=== PATIENT | male | born 1945 | race Caucasian/White ===

== ENCOUNTER 2017-04-25 08:11 | Day surgery (SDC) | payer MEDICARE ==
[~2017-04-25] VITALS: Ht 165.1 cm; Wt 79.4 kg
[~2017-04-25 08:11] MED LIST: BAYER CHEWABLE81 MG PO; EFFIENT10 MG PO; FLAGYL500 MG PO; GLUCOPHAGE500 MG PO; LIPITOR80 MG PO; LOPRESSOR25 MG PO; NORVASC10 MG PO; PRINIVIL20 MG PO; PROTONIX40 MG PO; RANEXA1000 MG PO; ZOFRAN4 MG PO
[2017-04-25 08:42] LABS: HEMATOCRIT 41.8 % (42.0-54.0); HEMOGLOBIN 14.7 g/dL (13.5-17.5); MCH 31.5 pg (26.0-34.0); MCHC 35.2 g/dL (31.0-37.0); MCV 89.5 fL (80.0-100.0); MEAN PLATELET VOLUME 9.2 fL (7.4-10.4); RBC 4.67 10x6/uL (4.20-6.10); RDW 12.9 % (11.5-14.5); WBC 8.3 10x3/uL (4.8-10.8)
[2017-04-25 08:52] LABS: ANION GAP 13.2 mmol/L (8-16); CALCIUM 9.5 mg/dL (8.5-10.1); CARBON DIOXIDE 26.2 mmol/L (21.0-32.0); CREATININE - SERUM 1.3 mg/dL (0.6-1.3); POTASSIUM - SERUM 4.4 mmol/L (3.5-5.1)
[2017-04-25] MEDS ORDERED: BAYER CHEWABLE81 MG PO (10:00)
[2017-04-25] MEDS ORDERED: EFFIENT10 MG PO (10:00)
[2017-04-25] MEDS ORDERED: PROVENTIL HFA6.7 GM INH (10:01)
[2017-04-25 10:02] VITALS: Ht 165.1 cm; Wt 79.4 kg
--- NOTE | 2017-04-25 16:00 | NUR ---
1530--IV DC'D, PT UP TO DRESS AT THIS TIME. KUSUM WISEMAN [id number]--DISCHARGE INSTRUCTIONS GIVEN, PT VERBALIZES UNDERSTANDING. PT OFF UNIT VIA WC. KUSUM WISEMAN
--- NOTE | 2017-05-03 13:27 | OP ---
PATIENT NAME: MINNA BERGERON MEDICAL RECORD: [id number] :43 LOCATION:D.OPS ADMISSION DATE: SURGEON: SALO GIPSON MD DATE OF OPERATION: 04/25/2017 PREOPERATIVE DIAGNOSES: 1. History of complex colon polyps including one polyp at 60 cm. 2. History of post-polypectomy bleeding. 3. History of right-sided prostatic nodule. POSTOPERATIVE DIAGNOSES: History of complex colon polyps including one polyp at 60 cm and history of post-polypectomy bleeding, with no evidence of recurrence or persistence of the polyp at 60 cm. Two new polyps, which appear to be adenomatous, they ranged in size from 9 mm to 1.5 cm and were sessile polyps. History of right-sided prostatic nodule. PROCEDURES: 1. Total colonoscopy to cecum. 2. Hot biopsy forceps polypectomies times 2. 3. Biopsies of the scar at 60 cm and then treatment of this site with the argon plasma salon professional. SURGEON: Salo Gipson MD CIVIL PREPAREDNESS COORDINATOR: None. BLOOD LOSS: Minimal. ANESTHESIA: General. COMPLICATIONS: None. The risks, possible complications and alternatives of the procedure were explained to the patient. He elects to proceed. OPERATIVE COURSE: The patient was conveyed to the operating room electively on 04/25/2017. General anesthesia was induced by the anesthesia staff. The patient was placed in the Leo position. A colonoscope was inserted through the anus. It was easily advanced to the cecum. Upon withdrawal, I irrigated and aspirated extensively. The prep was excellent. Two sessile polyps were noted and were removed in their entireties utilizing the hot biopsy forceps polypectomy technique. The scar was noted. It was biopsied with the cold endoscopic biopsy forceps and then the base was obliterated with the argon plasma salon professional. I then continued to withdraw the endoscope. I dragged the folds. A combination of direct imaging as well as narrow band imaging were utilized. A retroflexed view was obtained in the rectum. I noted no anal polyps or lower rectal polyps. I then unretroflexed the scope and removed it under direct vision. I will see the patient back in my office in 2-3 weeks. It is very likely I will return the patient's endoscopic needs back over to Dr. Castro. TRANSINT:[id number] Voice Confirmation ID: [id number] DOCUMENT ID: [id number] CC: Dr. S. Vengala OPERATIVE REPORT [id number] MINNA BERGERON ROBERT MD at 1327 CC: PATRICIA CASTRO MD, ULISES LAINEZ MD and VIKTOR MILLER [id number] DICTATION DATE: 04/25/17 1415 MACHINE ASSISTANT: 04/25/17 1635 [facility] [place] 04/25/17 [place] [id number] [place] [id number]
--- NOTE | 2017-05-03 13:27 | HP ---
PATIENT: MINNA BERGERON MEDICAL RECORD: [id number] ACCOUNT: [id number] LOCATION:[facility] : 43 ADMISSION DATE: 04/25/17 HISTORY AND PHYSICAL EXAMINATION CHIEF COMPLAINT: History of colon polyps. HISTORY OF PRESENT ILLNESS: The patient has a history of complex colon polyps. He had a complex colon polyp, which was a 2.4-cm polyp that was 60 cm from the anus. This was an adenomatous polyp, which was a tubular adenoma. He also has a squamous papillary hyperplasia with focal low-grade atypia of an anal polyp. The patient had to be readmitted after his last colonoscopy due to hematochezia. The patient had been restarted on Effient 2 days post-procedurally. I think I will keep him off the Effient for a little while longer this time. REVIEW OF SYSTEMS: No chest pain. No cough. No nausea or vomiting. PAST MEDICAL AND SURGICAL HISTORY: Hypertension, gastroesophageal reflux, [id number] diabetes mellitus, coronary stents. HOME MEDICINES: Last list of home medicines I have for the patient includes metoprolol, Effient, metformin, lisinopril, as well as amlodipine. ALLERGIES: No known drug allergies. SOCIAL HISTORY: Does not drink. Does not smoke. PHYSICAL EXAMINATION: GENERAL: The patient does not appear acutely ill. He does not appear chronically ill. VITAL SIGNS: Reviewed. EARS: External ears appear normal. EYES: Extraocular movements are intact. NECK: Trachea is midline. CHEST: No intercostal retractions. PULMONARY: Nonlabored. No stridor. ABDOMEN: Nontender. IMPRESSION: History of complex colon polyps. PLAN: Colonoscopy and polypectomy with argon plasma warning analyst. TRANSINT:[id number] Voice Confirmation ID: [id number] DOCUMENT ID: [id number] CC: Dr. Vita Mart HISTORY AND PHYSICAL [id number] MINNA BERGERON SALO GIPSON MD at 1327 CC: PATRICIA PARTIDA MD, ULISES LAINEZ MD and VIKTOR MILLER [id number] DICTATION DATE: 04/25/17 1403 FACTORY ASSEMBLER: 04/25/17 1423 [facility] 04/25/17 [place] [id number] [place] [address]
== END 2017-04-25 15:45 | disposition home or self-care (01) ==
LOC: D.OPS 08:11 → D.PAN 09:30 → D.OPS 10:25 → D.PAN 10:25 → D.OPS 15:45
PROVIDERS: Anesthesiology
DX: Z86.010 Personal history of colon polyps (principal); K63.5 Polyp of colon; I10 Essential (primary) hypertension; E11.9 Type 2 diabetes mellitus without complications; Z95.5 Presence of coronary angioplasty implant and graft; J44.9 Chronic obstructive pulmonary disease, unspecified; I50.9 Heart failure, unspecified; Z87.891 Personal history of nicotine dependence; Z01.812 Encounter for preprocedural laboratory examination

== ENCOUNTER 2017-05-09 13:33 | Observation (INO) | payer MEDICARE ==
[~2017-05-09] VITALS: Ht 165.1 cm; Wt 77.1 kg
--- NOTE | ~2017-05-09 | DS ---
PATIENT:MINNA BERGERON :43 MEDICAL RECORD: [id number] DISCHARGE SUMMARY ADMISSION DATE: 05/09/17 DISCHARGE DATE: 05/11/17 PRINCIPAL DIAGNOSES: 1. Post-polypectomy lower GI bleeding. 2. Acute blood loss anemia, requiring transfusions. 3. Diabetes. 4. Hypertension. 5. History of coronary stents. 6. COPD. 7. Emphysema. 8. History of complex colon polyps. 9. History of post-polypectomy bleeding in the past. The patient was admitted through the Emergency Room. He was started on IV antibiotics. We discontinued his anticoagulation. He was on this due to history of coronary stents. The patient had no further bleeding. He was then dismissed home. I have asked for him to contact his material coordinator to see if he can be discontinued from anticoagulation permanently. This is the second time that he has had post-polypectomy bleeding. This occurred this time even after 8 days of being off anticoagulation. TRANSINT:[id number] Voice Confirmation ID: [id number] DOCUMENT ID: [id number] SALO GIPSON MD at 0938 CC: [id number] DICTATION DATE: 05/12/17 1648 HAND WASHER: 05/13/17 1113 [facility] [place] 05/11/17 [place] [id number] [place] [address]
[~2017-05-09 13:33] MED LIST changes: +PROVENTIL HFA6.7 GM INH
[2017-05-09 14:49] LABS: BASOPHILS 0.3 % (0-2); EOSINOPHILS 4.6 % (0-7); HEMATOCRIT 37.6 % (42.0-54.0); HEMOGLOBIN 13.1 g/dL (13.5-17.5); IMMATURE GRANULOCYTES 0.2 % (0-5); MCH 31.2 pg (26.0-34.0); MCHC 34.8 g/dL (31.0-37.0); MCV 89.5 fL (80.0-100.0); MEAN PLATELET VOLUME 9.6 fL (7.4-10.4); MONOCYTES 5.4 % (2-11); NEUTROPHILS 59.5 % (40-80); RDW 12.6 % (11.5-14.5)
[2017-05-09 14:59] LABS: ALBUMIN 3.5 g/dL (3.4-5.0); ANION GAP 13.8 mmol/L (8-16); BILIRUBIN - TOTAL 0.37 mg/dL (0.2-1.3); CALCIUM 8.9 mg/dL (8.5-10.1); CARBON DIOXIDE 26.1 mmol/L (21.0-32.0); CREATININE - SERUM 1.1 mg/dL (0.6-1.3); POTASSIUM - SERUM 4.9 mmol/L (3.5-5.1)
[2017-05-09 15:01] LABS: APTT 28.6 SECONDS (22.8-39.4); INR 0.99 (0.85-1.17); PROTIME 12.7 SECONDS (11.6-15.0)
[2017-05-09 15:08] LABS: PLATELET COUNT 295 10x3/uL (130-400)
[2017-05-09 19:21] LABS: BASOPHILS 0.3 % (0-2); EOSINOPHILS 1.6 % (0-7); IMMATURE GRANULOCYTES 0.1 % (0-5); LYMPHOCYTES 27.5 % (15-50); MCH 30.9 pg (26.0-34.0); MCHC 34.6 g/dL (31.0-37.0); MCV 89.4 fL (80.0-100.0); MEAN PLATELET VOLUME 9.3 fL (7.4-10.4); MONOCYTES 4.6 % (2-11); NEUTROPHILS 65.9 % (40-80); PLATELET COUNT 252 10x3/uL (130-400); RDW 12.7 % (11.5-14.5)
[2017-05-09 19:27] LABS: HEMATOCRIT 26.9 % (42.0-54.0); HEMOGLOBIN 9.3 g/dL (13.5-17.5); RBC 3.01 10x6/uL (4.20-6.10)
[2017-05-10 01:15] LABS: HEMATOCRIT 25.2 % (42.0-54.0); HEMOGLOBIN 8.7 g/dL (13.5-17.5)
[2017-05-10 02:00] VITALS: BP 109/42
[2017-05-10 03:51] VITALS: BMI 28.3
[2017-05-10 04:00] VITALS: BP 115/48
[2017-05-10 08:08] LABS: BASOPHILS 0.3 % (0-2); EOSINOPHILS 1.4 % (0-7); IMMATURE GRANULOCYTES 0.2 % (0-5); LYMPHOCYTES 30.5 % (15-50); MCH 31.3 pg (26.0-34.0); MCV 89.5 fL (80.0-100.0); MEAN PLATELET VOLUME 9.5 fL (7.4-10.4); MONOCYTES 6.8 % (2-11); NEUTROPHILS 60.8 % (40-80); RBC 3.42 10x6/uL (4.20-6.10); RDW 13.4 % (11.5-14.5)
[2017-05-10 08:11] LABS: HEMATOCRIT 30.6 % (42.0-54.0); HEMOGLOBIN 10.7 g/dL (13.5-17.5); PLATELET COUNT 177 10x3/uL (130-400); WBC 11.3 10x3/uL (4.8-10.8)
[2017-05-10 08:35] VITALS: BP 156/54
[2017-05-10 12:09] VITALS: Ht 165.1 cm; Wt 77.1 kg
[2017-05-10 13:48] VITALS: BP 154/62
[2017-05-10 16:04] VITALS: BP 123/56
[2017-05-10 19:10] LABS: HEMATOCRIT 25.1 % (42.0-54.0); HEMOGLOBIN 8.7 g/dL (13.5-17.5)
[2017-05-11 01:52] LABS: HEMATOCRIT 25.5 % (42.0-54.0)
[2017-05-11 04:00] VITALS: BP 115/49
[2017-05-11 07:33] LABS: HEMATOCRIT 25.3 % (42.0-54.0); HEMOGLOBIN 8.8 g/dL (13.5-17.5)
[2017-05-11 08:17] VITALS: BP 122/52
[2017-05-11 12:45] VITALS: BP 115/52
[2017-05-11 13:05] LABS: HEMATOCRIT 26.8 % (42.0-54.0); HEMOGLOBIN 9.3 g/dL (13.5-17.5)
== END 2017-05-11 15:29 | disposition home or self-care (01) ==
LOC: D.ER 13:33 → D.MS 16:58 → OBSVTIME 16:58 → D.MS 05-11 15:29
PROVIDERS: Emergency Medicine; Surgery
DX: K91.840 Postprocedural hemorrhage of a digestive system organ or structure following a digestive system procedure (principal); D62 Acute posthemorrhagic anemia; E11.9 Type 2 diabetes mellitus without complications; I10 Essential (primary) hypertension; Z95.5 Presence of coronary angioplasty implant and graft; J43.9 Emphysema, unspecified